=== PATIENT | female | born 1945 | race Caucasian/White ===

== ENCOUNTER → 2017-06-03 | Outpatient (CLI) | payer MEDICARE ==
[~2017-06-03] MED LIST: ABAT125S INJ; CALC600T4 PO; CEPH-368 PO; CHOL5000 PO; CLIN150C14 PO; FOLI0.8T2 PO; HYDR1TAB16 PO; MELO7.5T31 PO; METH2.5T PO; PRAV40TA2 PO; PRED5TAB PO; PREG300C PO; REGADENOSON 0.4 MG/5 ML SYRINGE ONE; SERT50TA PO; UMEC1DIS INH
== END | disposition home or self-care (01) ==
LOC: CFH 12:00
PROVIDERS: ATTEND Internal Medicine Cardiovascular Disease
DX: I08.0 Rheumatic disorders of both mitral and aortic valves (principal)
CPT/HCPCS: 78452; 93017; 93306; A9502; J2785

== ENCOUNTER → 2017-06-04 | Outpatient (CLI) | payer MEDICARE ==
[~2017-06-04] MED LIST changes: -REGADENOSON 0.4 MG/5 ML SYRINGE ONE
[2017-06-04 14:13] LABS: HEMATOCRIT 46.9 % (34.6-47.8); HEMOGLOBIN 16.1 g/dL (11.7-16.4); WHITE BLOOD COUNT 6.4 x10^3/uL (3.4-10)
[2017-06-04 14:26] LABS: ASPARTATE AMINO TRANSFERASE 43 U/L (15-37); BLOOD UREA NITROGEN 19 mg/dL (7-18)
[2017-06-04 14:47] LABS: HIV 1&2 ANTIBODY SCREEN Nonreactive (Nonreactive); HIV-1 p24 ANTIGEN Nonreactive (Nonreactive)
== END | disposition home or self-care (01) ==
LOC: MERGE 12:30 → STAR 12:38
PROVIDERS: ATTEND Orthopaedic Surgery Orthopaedic Surgery of the Spine
DX: Z01.818 Encounter for other preprocedural examination (principal); M51.16 Intervertebral disc disorders with radiculopathy, lumbar region; R79.1 Abnormal coagulation profile; M51.34 Other intervertebral disc degeneration, thoracic region; Z96.612 Presence of left artificial shoulder joint
CPT/HCPCS: 36415; 71020; 80053; 80074; 81003; 85025; 85610; 85651; 85730; 86703; 87899; G0435

== ENCOUNTER 2017-06-11 05:40 | Inpatient (IN) | payer MEDICARE ==
[2017-06-04 14:06] VITALS: BP 136/92
[~2017-06-11] VITALS: Ht 167.6 cm; Wt 83.0 kg
[2017-06-11] MEDS ORDERED: HEPARIN 1,000 UNITS/ML, 30ML ONE (05:58)
[2017-06-11] MEDS ORDERED: LIDOCAINE 1%, 2ML ONE (06:21)
[2017-06-11] MEDS ORDERED: BUPIVACAINE/PF 0.5% ONE (06:47)
[2017-06-11] MEDS ORDERED: FENTANYL PF 100 MCG/2ML ONE ×2 (06:48→07:11)
[2017-06-11] MEDS ORDERED: LIDOCAINE/PF 1%, 30ML ONE (06:48)
[2017-06-11] MEDS ORDERED: GENTAMICIN 80 MG/2 ML ONE (06:48)
[2017-06-11] MEDS ORDERED: VANCOMYCIN 1,000 MG ONE ×2 (06:49→09:11)
[2017-06-11] MEDS ORDERED: BACITRACIN 50,000 UNIT ONE (06:49)
[2017-06-11] MEDS ORDERED: morphine SULFATE/PF 1 MG/ML, 10ML ONE (06:49)
[2017-06-11] MEDS ORDERED: EPINEPHRINE 1 MG/ML, 1ML ONE (06:49)
[2017-06-11] MEDS ORDERED: THROMBIN 5,000 UNIT VIAL TP ONE (06:52)
[2017-06-11] MEDS ORDERED: LACTATED RINGERS 1,000 ML IV SCH (07:06)
[2017-06-11] MEDS ORDERED: MIDAZOLAM 1 MG/ML, 2ML ONE (07:11)
[2017-06-11] MEDS ORDERED: LIDOCAINE-MPF 2% ,5ML ONE (07:11)
[2017-06-11] MEDS ORDERED: PROPOFOL 10 MG/ML, 20ML ONE (07:11)
[2017-06-11] MEDS ORDERED: PHENYLEPHRINE 10 MG/ML ONE ×2 (07:13)
[2017-06-11] MEDS ORDERED: CEFAZOLIN 1,000 MG ONE ×2 (07:14)
[2017-06-11] MEDS ORDERED: REMIFENTANIL 2 MG ONE (07:26)
[2017-06-11] MEDS ORDERED: LIDOCAINE 1%, 2ML SQ PRN (07:30)
[2017-06-11] MEDS ORDERED: HYDROCORTISONE 100 MG INJ. ONE (07:43)
[2017-06-11] MEDS ORDERED: GLYCOPYRROLATE 0.4 MG/2 ML, 2ML ONE (08:20)
[2017-06-11] MEDS ORDERED: KETAMINE 10 MG/ML, 20ML ONE (08:59)
[2017-06-11] MEDS ORDERED: OXYcodone 5 MG/5 ML ORAL.SOL UDC PO PRN (09:00)
[2017-06-11] MEDS ORDERED: LABETALOL 5MG/ML, 20ML IV PRN ×2 (09:00→14:00)
[2017-06-11] MEDS ORDERED: ONDANSETRON 2MG/ML, 2ML IVPush PRN (09:00)
[2017-06-11] MEDS ORDERED: ACETAMINOPHEN 325 MG TABLET PO PRN (09:00)
[2017-06-11] MEDS ORDERED: PROMETHAZINE 25 MG/ML, 1ML IV PRN (09:00)
[2017-06-11] MEDS ORDERED: HYDROmorphone 1 MG/ML, 1ML IV PRN (09:00)
[2017-06-11] MEDS ORDERED: LORazepam 2 MG/ML, 1ML IVPush PRN (09:00)
[2017-06-11] MEDS ORDERED: hydrALAzine 20 MG/ML, 1ML IV PRN (09:00)
[2017-06-11] MEDS ORDERED: MEPERIDINE/PF 25MG/0.5ML IVPush PRN (09:00)
[2017-06-11] MEDS ORDERED: ALBUTEROL SULFATE 2.5 MG/3 ML NPPB PRN (09:00)
[2017-06-11] MEDS ORDERED: FENTANYL PF 100 MCG/2ML IV PRN (09:00)
[2017-06-11] MEDS ORDERED: ROCURONIUM 10MG/ML,5ML ONE (10:25)
[2017-06-11] MEDS ORDERED: PROPOFOL 10 MG/ML, 50ML ONE (10:25)
[2017-06-11] MEDS ORDERED: ONDANSETRON 2MG/ML, 2ML ONE (10:25)
[2017-06-11] MEDS ORDERED: SUCCINYLCHOLINE 20 MG/ML, 10ML ONE (10:25)
[2017-06-11] MEDS ORDERED: HYDROmorphone 1 MG/ML, 1ML ONE (10:41)
[2017-06-11] MEDS ORDERED: HYDROmorphone PCA 30 MG/30 ML ONE (12:10)
[2017-06-11] MEDS ORDERED: HYDROmorphone PCA 30 MG/30 ML IV PRN (12:30)
[2017-06-11 13:45] VITALS: BP 108/64
[2017-06-11] MEDS ORDERED: EPHEDRINE 50 MG/ML, 1ML IVPush PRN (14:00)
[2017-06-11] MEDS ORDERED: NALBUPHINE 10 MG/ML, 1ML IV PRN (14:00)
[2017-06-11] MEDS ORDERED: NALOXONE 0.4 MG/ML, 1ML IVPush PRN (14:00)
[2017-06-11] MEDS ORDERED: BISACODYL 10 MG SUPP PR PRN (14:00)
[2017-06-11] MEDS ORDERED: VANCOMYCIN PER PHARMACY MC PRN (14:00)
[2017-06-11] MEDS ORDERED: DIPHENHYDRAMINE 50 MG/ML, 1ML IVPush PRN ×3 (14:00)
[2017-06-11] MEDS ORDERED: DIAZEPAM 5 MG/ML, 2ML IV PRN (14:00)
[2017-06-11] MEDS ORDERED: DIPHENHYDRAMINE 50 MG/ML, 1ML IM PRN (14:00)
[2017-06-11] MEDS ORDERED: DIPHENHYDRAMINE 50 MG CAPSULE PO PRN (14:00)
[2017-06-11] MEDS ORDERED: MAGNESIUM HYDROXIDE 8%, 30ML UDC PO PRN (14:00)
[2017-06-11] MEDS ORDERED: PHARMACOKINETIC CONSULTATION MC ONE (14:00)
[2017-06-11] MEDS ORDERED: PHARMACOKINETIC MONITORING MC PRN (14:00)
[2017-06-11] MEDS ORDERED: DIAZEPAM 5 MG TABLET PO PRN (14:00)
[2017-06-11] MEDS ORDERED: PROMETHAZINE 25 MG/ML, 1ML IM PRN (14:00)
[2017-06-11] MEDS: ACETAMINOPHEN 500 MG TABLET PO SCH ×2 (14:41→21:18)
[2017-06-11] MEDS: LACTATED RINGERS 1,000 ML IV SCH ×2 (14:41→23:12)
[2017-06-11] MEDS: METOCLOPRAMIDE 5 MG/ML, 2ML IVPush SCH (14:59)
[2017-06-11 19:18] VITALS: BP 112/68
[2017-06-11] MEDS: PREGABALIN 150 MG CAPSULE PO SCH (21:18)
[2017-06-11] MEDS: PRAVASTATIN 40 MG TABLET PO SCH (23:12)
[2017-06-11 23:17] VITALS: BP 112/65
[2017-06-12] MEDS: METOCLOPRAMIDE 5 MG/ML, 2ML IVPush SCH (03:29)
[2017-06-12 03:36] VITALS: BP 104/56
[2017-06-12 05:55] LABS: BLOOD UREA NITROGEN 13 mg/dL (7-18)
[2017-06-12] MEDS: LACTATED RINGERS 1,000 ML IV SCH ×2 (06:52→16:45)
[2017-06-12] MEDS ORDERED: VANCOMYCIN 1,500 MG in SODIUM CHLORIDE 0.9% 250 ML IV SCH (09:00)
[2017-06-12] MEDS ORDERED: ERGOCALCIFEROL 50,000 UNIT CAPSULE PO SCH (09:00)
[2017-06-12 09:19] VITALS: BP 118/62
[2017-06-12] MEDS: PREGABALIN 150 MG CAPSULE PO SCH ×2 (09:48→20:49)
[2017-06-12] MEDS: SENNA/DOCUSATE TABLET PO SCH (09:48)
[2017-06-12] MEDS: CHOLECALCIFEROL 1,000 UNIT TABLET PO SCH (09:48)
[2017-06-12] MEDS: SERTRALINE 50MG TABLET PO SCH (09:48)
[2017-06-12] MEDS: CALCIUM CARBONATE 500 MG TAB.CHEW PO SCH ×2 (09:48→20:49)
[2017-06-12] MEDS: ACETAMINOPHEN 500 MG TABLET PO SCH ×2 (09:51→20:49)
[2017-06-12 13:23] VITALS: BP 101/59
[2017-06-12] MEDS: ANORO ELLIPTA HOMEINH SCH (14:00)
[2017-06-12 20:06] VITALS: BP 95/52
[2017-06-12] MEDS: PRAVASTATIN 40 MG TABLET PO SCH (20:49)
[2017-06-12] MEDS ORDERED: ZOLPIDEM 5MG TABLET PO PRN (21:00)
[2017-06-13] MEDS: LACTATED RINGERS 1,000 ML IV SCH ×2 (01:18→09:30)
[2017-06-13] MEDS ORDERED: HYDR-3307 PO (01:31)
[2017-06-13] MEDS ORDERED: ERGO500018 PO (01:36)
[2017-06-13 03:59] VITALS: BP 119/68
[2017-06-13 07:54] VITALS: BP 124/62
[2017-06-13] MEDS: CHOLECALCIFEROL 1,000 UNIT TABLET PO SCH (09:08)
[2017-06-13] MEDS: SENNA/DOCUSATE TABLET PO SCH (09:08)
[2017-06-13] MEDS: SERTRALINE 50MG TABLET PO SCH (09:08)
[2017-06-13] MEDS: PREGABALIN 150 MG CAPSULE PO SCH (09:08)
[2017-06-13] MEDS: CALCIUM CARBONATE 500 MG TAB.CHEW PO SCH (09:15)
[2017-06-13] MEDS: HYDROcodone/APAP 10/325 MG TABLET PO PRN ×2 (09:15→14:43)
[2017-06-13] MEDS: ACETAMINOPHEN 500 MG TABLET PO SCH (09:15)
[2017-06-13] MEDS ORDERED: VANCOMYCIN 1,500 MG in SODIUM CHLORIDE 0.9% 250 ML IV SCH (09:30)
[2017-06-13] MEDS ORDERED: MAGNESIUM HYDROXIDE 8%, 30ML UDC PO ONE (11:00)
[2017-06-13] MEDS: ANORO ELLIPTA HOMEINH SCH (13:30)
[2017-06-13 14:00] VITALS: BP 115/58
== END 2017-06-13 13:10 | disposition home or self-care (01) | DRG 460 ==
LOC: ORIP 05:40 → 4NOR 13:22
PROVIDERS: ADMIT Orthopaedic Surgery Orthopaedic Surgery of the Spine; ATTEND Orthopaedic Surgery Orthopaedic Surgery of the Spine
PROC: 0SP00AZ Removal of Interbody Fusion Device from Lumbar Vertebral Joint, Open Approach (ICD-10-PCS; 2017-06-11)
PROC: 0QB30ZZ Excision of Left Pelvic Bone, Open Approach (ICD-10-PCS; 2017-06-11)
PROC: 01NB0ZZ Release Lumbar Nerve, Open Approach (ICD-10-PCS; 2017-06-11)
PROC: 4A1134G Monitoring of Peripheral Nervous Electrical Activity, Intraoperative, Percutaneous Approach (ICD-10-PCS; 2017-06-11)
PROC: 0SG0071 Fusion of Lumbar Vertebral Joint with Autologous Tissue Substitute, Posterior Approach, Posterior Column, Open Approach (ICD-10-PCS; principal; 2017-06-11 07:30)
DX: M48.061 Spinal stenosis, lumbar region without neurogenic claudication (principal); E27.3 Drug-induced adrenocortical insufficiency; G62.9 Polyneuropathy, unspecified; F11.20 Opioid dependence, uncomplicated; M41.86 Other forms of scoliosis, lumbar region; Q78.2 Osteopetrosis; J44.9 Chronic obstructive pulmonary disease, unspecified; E78.5 Hyperlipidemia, unspecified; H91.90 Unspecified hearing loss, unspecified ear; G89.29 Other chronic pain; I10 Essential (primary) hypertension; M06.9 Rheumatoid arthritis, unspecified; M19.90 Unspecified osteoarthritis, unspecified site; M43.16 Spondylolisthesis, lumbar region; Z96.641 Presence of right artificial hip joint; Z96.651 Presence of right artificial knee joint; F12.90 Cannabis use, unspecified, uncomplicated; M05.9 Rheumatoid arthritis with rheumatoid factor, unspecified; R56.9 Unspecified convulsions; M54.16 Radiculopathy, lumbar region; M81.0 Age-related osteoporosis without current pathological fracture; T38.0X5A Adverse effect of glucocorticoids and synthetic analogues, initial encounter; Y92.89 Other specified places as the place of occurrence of the external cause; Z79.52 Long term (current) use of systemic steroids; Z78.9 Other specified health status; Z80.8 Family history of malignant neoplasm of other organs or systems; Z82.5 Family history of asthma and other chronic lower respiratory diseases; Z86.14 Personal history of Methicillin resistant Staphylococcus aureus infection; Z87.891 Personal history of nicotine dependence; Z88.2 Allergy status to sulfonamides
CPT/HCPCS: 36415; 72100; 82565; 84520; 86850; 86900; 86923; 95938; 95941; C1713; J0171; J0690; J1170; J1644; J2250; J2274; J2405; J2704; J3010; J3370; J3490; C1751; C1762; J0330; J1580; J1720; J2370; J2765; J7050; J7120; J7512

== ENCOUNTER 2017-10-24 12:30 | Inpatient (IN) | payer MEDICARE ==
[~2017-10-24] VITALS: Ht 152.4 cm; Wt 72.9 kg
[~2017-10-24 12:30] MED LIST changes: +ERGO500018 PO; +HYDR-3307 PO
[2017-10-24] MEDS ORDERED: SODIUM CHLORIDE 0.9% 1,000 ML IV ONE (13:12)
[2017-10-24] MEDS ORDERED: SODIUM CHLORIDE FLUSH 10ML SYR IVF ONE (13:30)
[2017-10-24 13:35] LABS: BASOPHILS % (AUTO) 0 % (0-1); EOSINOPHILS # (AUTO) 0.04 x10^3/uL (0-0.4); EOSINOPHILS % (AUTO) 1 % (1-7); LYMPHOCYTES # (AUTO) 0.94 x10^3/uL (1-3.4); LYMPHOCYTES % (AUTO) 13 % (22-44); MD NO; MEAN CORPUSCULAR HEMOGLOBIN 32.5 pg (27.0-34.8); MEAN CORPUSCULAR HGB CONC 33.7 g/dL (32.4-35.8); MEAN CORPUSCULAR VOLUME 96.4 fL (80-100); MEAN PLATELET VOLUME 8.3 fL (7.4-10.4); MONOCYTES # (AUTO) 0.52 x10^3/uL (0.2-0.8); MONOCYTES % (AUTO) 7 % (2-9); NEUTROPHILS # (AUTO) 5.68 x10^3/uL (1.8-6.8); NEUTROPHILS % (AUTO) 79 % (42-75); PLATELET COUNT 191 x10^3/uL (130-400); RED BLOOD COUNT 4.72 x10^6/uL (3.82-5.3); RED CELL DISTRIBUTION WIDTH 14.9 % (9.6-15.2)
[2017-10-24 13:44] LABS: INTERNATIONAL NORMALIZED RATIO 1.04 (0.93-1.1); PROTHROMBIN TIME 10.7 Seconds (9.6-11.5)
[2017-10-24 13:47] LABS: ALANINE AMINOTRANSFERASE 61 U/L (12-78); ALBUMIN 3.9 g/dL (3.4-5.0); ANION GAP 10 mmol/L (5-15); CALCIUM 8.8 mg/dL (8.5-10.1); CHLORIDE 105 mmol/L (98-107)
[2017-10-24 13:51] LABS: ALKALINE PHOSPHATASE 94 U/L (45-117); BILIRUBIN,TOTAL 0.7 mg/dL (0.2-1.0); TOTAL PROTEIN 7.2 g/dL (6.4-8.2); TROPONIN I < 0.015 ng/mL (0.000-0.045)
[2017-10-24 14:59] LABS: MICROSCOPIC AUTO
[2017-10-24 15:00] LABS: CULTURE INDICATED? YES
[2017-10-24] MEDS ORDERED: ASPIRIN 81 MG TABLET CHEW PO ONE (15:00)
[2017-10-24] MEDS ORDERED: ASPIRIN 81 MG TABLET CHEW ONE (15:03)
[2017-10-24] MEDS ORDERED: METH2.5T PO (15:14)
[2017-10-24] MEDS ORDERED: MELO7.5T31 PO (15:16)
[2017-10-24] MEDS ORDERED: HYDROcodone/APAP 10/325 MG TABLET ONE (15:38)
[2017-10-24] MEDS ORDERED: HYDROcodone/APAP 10/325 MG TABLET PO ONE (16:00)
[2017-10-24 16:43] LABS: HCT (SEDRATE) 45.5 % (34.6-47.8)
[2017-10-24] MEDS ORDERED: ONDANSETRON 2MG/ML, 2ML IVPush PRN (17:00)
[2017-10-24] MEDS ORDERED: ONDANSETRON ODT 4 MG PO PRN (17:00)
[2017-10-24] MEDS ORDERED: ENALAPRILAT 1.25 MG/ML, 2ML IV PRN (17:00)
[2017-10-24] MEDS ORDERED: ACETAMINOPHEN 325 MG TABLET PO PRN (17:00)
[2017-10-24] MEDS: IPRATROPIUM 0.5 MG/2.5 ML INHA NPPB SCH ×2 (17:00→23:00)
[2017-10-24 17:02] LABS: THYROID STIMULATING HORMONE 0.427 mIU/L (0.358-3.740)
[2017-10-24 17:15] VITALS: BP 186/90
[2017-10-24 17:17] LABS: C-REACTIVE PROTEIN, QUANT 1.3 mg/dL (0.02-0.49)
[2017-10-24] MEDS: METHOTREXATE MC SCH (17:30)
[2017-10-24] MEDS: UMECLIDINIUM MC SCH (17:30)
[2017-10-24] MEDS: VILANTEROL MC SCH (17:30)
[2017-10-24] MEDS ORDERED: CEFTRIAXONE PMX 1GM/50ML 50 ML IV SCH (18:00)
[2017-10-24] MEDS ORDERED: ENOXAPARIN 40 MG/0.4 ML SQ SCH (18:00)
[2017-10-24] MEDS: SODIUM CHLORIDE 0.9% 1,000 ML IV SCH (18:12)
[2017-10-24] MEDS ORDERED: PRAVASTATIN 40 MG TABLET PO SCH (21:00)
[2017-10-24] MEDS ORDERED: DOCUSATE 100 MG CAPSULE PO PRN (21:00)
[2017-10-24 21:05] VITALS: BP_SYST 163; BP_SYST 169; BP_SYST 185; BP_DIAS 89; BP_DIAS 94; BP_DIAS 98
[2017-10-24] MEDS: HYDROcodone/APAP 10/325 MG TABLET PO PRN (21:09)
[2017-10-24] MEDS: PREGABALIN 150 MG CAPSULE PO SCH (21:09)
[2017-10-25] MEDS: VILANTEROL MC SCH ×2 (01:05→09:30)
[2017-10-25] MEDS: UMECLIDINIUM MC SCH ×2 (01:05→09:30)
[2017-10-25] MEDS: METHOTREXATE MC SCH ×2 (01:05→09:30)
[2017-10-25 04:38] VITALS: BP 150/92
[2017-10-25] MEDS: SODIUM CHLORIDE 0.9% 1,000 ML IV SCH (04:45)
[2017-10-25] MEDS: IPRATROPIUM 0.5 MG/2.5 ML INHA NPPB SCH ×2 (05:00→11:00)
[2017-10-25 05:52] LABS: BASOPHILS # (AUTO) 0.03 x10^3/uL (0-0.1); BASOPHILS % (AUTO) 1 % (0-1); EOSINOPHILS # (AUTO) 0.12 x10^3/uL (0-0.4); EOSINOPHILS % (AUTO) 2 % (1-7); LYMPHOCYTES # (AUTO) 1.46 x10^3/uL (1-3.4); LYMPHOCYTES % (AUTO) 29 % (22-44); MD NO; MEAN CORPUSCULAR HEMOGLOBIN 32.7 pg (27.0-34.8); MEAN CORPUSCULAR HGB CONC 33.9 g/dL (32.4-35.8); MEAN CORPUSCULAR VOLUME 96.6 fL (80-100); MEAN PLATELET VOLUME 8.3 fL (7.4-10.4); MONOCYTES # (AUTO) 0.54 x10^3/uL (0.2-0.8); MONOCYTES % (AUTO) 11 % (2-9); NEUTROPHILS # (AUTO) 2.82 x10^3/uL (1.8-6.8); NEUTROPHILS % (AUTO) 57 % (42-75); PLATELET COUNT 163 x10^3/uL (130-400); RED BLOOD COUNT 4.23 x10^6/uL (3.82-5.3); RED CELL DISTRIBUTION WIDTH 14.9 % (9.6-15.2)
[2017-10-25 05:54] LABS: CHLORIDE 111 mmol/L (98-107)
[2017-10-25 06:00] LABS: ALANINE AMINOTRANSFERASE 50 U/L (12-78); ALBUMIN 3.3 g/dL (3.4-5.0); ALKALINE PHOSPHATASE 83 U/L (45-117); ANION GAP 6 mmol/L (5-15); BILIRUBIN,TOTAL 0.6 mg/dL (0.2-1.0); CALCIUM 7.7 mg/dL (8.5-10.1); CHOL/HDL RATIO 3.5; CHOLESTEROL, TOTAL 196 mg/dL (140-239); CREATININE 0.71 mg/dL (0.55-1.02); HDL CHOL % 29 % (28-40); HDL CHOLESTEROL (DIRECT) 56 mg/dL (40-60); LDL CHOLESTEROL,CALCULATED 91 mg/dL (54-169); LDL/HDL RATIO 1.6 (0.5-3.0); TRIGLYCERIDES 243 mg/dL (50-200); VLDL CHOLESTEROL 49 mg/dL (0-25)
[2017-10-25] MEDS ORDERED: ASPIRIN 325 MG TABLET PO SCH (06:00)
[2017-10-25 08:45] VITALS: BP 178/105
[2017-10-25] MEDS: PREGABALIN 150 MG CAPSULE PO SCH (08:51)
[2017-10-25] MEDS: HYDROcodone/APAP 10/325 MG TABLET PO PRN (08:57)
[2017-10-25] MEDS ORDERED: CHOLECALCIFEROL 1,000 UNIT TABLET PO SCH (09:00)
[2017-10-25] MEDS ORDERED: CALCIUM CARBONATE 500 MG TAB.CHEW PO SCH (09:00)
[2017-10-25] MEDS ORDERED: SERTRALINE 50MG TABLET PO SCH (09:00)
[2017-10-25 12:55] VITALS: BP 153/72
[2017-10-25] MEDS ORDERED: METHOTREXATE 2.5 MG TABLET PO SCH (17:00)
== END 2017-10-25 16:00 | disposition left against medical advice (07) | DRG 69 ==
LOC: ED 13:54 → EDIP 14:56 → 4WST 17:00
PROVIDERS: ADMIT Hospitalist; ATTEND Hospitalist
DX: G45.9 Transient cerebral ischemic attack, unspecified (principal); F11.20 Opioid dependence, uncomplicated; J44.9 Chronic obstructive pulmonary disease, unspecified; G40.909 Epilepsy, unspecified, not intractable, without status epilepticus; J98.11 Atelectasis; N39.0 Urinary tract infection, site not specified; R51 Headache; M06.9 Rheumatoid arthritis, unspecified; E78.5 Hyperlipidemia, unspecified; I10 Essential (primary) hypertension; Z53.21 Procedure and treatment not carried out due to patient leaving prior to being seen by health care provider; M19.90 Unspecified osteoarthritis, unspecified site; M81.0 Age-related osteoporosis without current pathological fracture; Z96.612 Presence of left artificial shoulder joint; H91.90 Unspecified hearing loss, unspecified ear; T38.0X5A Adverse effect of glucocorticoids and synthetic analogues, initial encounter; Y92.89 Other specified places as the place of occurrence of the external cause; Z79.52 Long term (current) use of systemic steroids; Z86.14 Personal history of Methicillin resistant Staphylococcus aureus infection; Z87.891 Personal history of nicotine dependence; Z88.2 Allergy status to sulfonamides; Z79.899 Other long term (current) drug therapy
CPT/HCPCS: 36415; 70450; 70551; 71045; 80053; 80061; 81001; 82140; 83735; 83880; 84145; 84443; 84484; 85025; 85610; 85651; 85730; 86140; 87086; 93005; 93306; 93880; 99285; J0696; J1650; 92523-GN; J7030; J7512

== ENCOUNTER 2018-08-09 13:09 | Inpatient (IN) | payer MEDICARE ==
[~2018-08-09] VITALS: Ht 165.1 cm; Wt 76.5 kg
[2018-08-09 14:12] LABS: BASOPHILS # (AUTO) 0.07 x10^3/uL (0-0.1); BASOPHILS % (AUTO) 1 % (0-1); EOSINOPHILS # (AUTO) 0.24 x10^3/uL (0-0.4); EOSINOPHILS % (AUTO) 4 % (1-7); LYMPHOCYTES # (AUTO) 1.29 x10^3/uL (1-3.4); LYMPHOCYTES % (AUTO) 20 % (22-44); MD NO; MEAN CORPUSCULAR HEMOGLOBIN 33.1 pg (27.0-34.8); MEAN CORPUSCULAR HGB CONC 33.7 g/dL (32.4-35.8); MEAN CORPUSCULAR VOLUME 98.4 fL (80-100); MEAN PLATELET VOLUME 8.3 fL (7.4-10.4); MONOCYTES # (AUTO) 0.66 x10^3/uL (0.2-0.8); MONOCYTES % (AUTO) 10 % (2-9); NEUTROPHILS # (AUTO) 4.07 x10^3/uL (1.8-6.8); NEUTROPHILS % (AUTO) 64 % (42-75); PLATELET COUNT 182 x10^3/uL (130-400); RED BLOOD COUNT 4.49 x10^6/uL (3.82-5.3); RED CELL DISTRIBUTION WIDTH 14.4 % (9.6-15.2)
[2018-08-09 14:24] LABS: ALANINE AMINOTRANSFERASE 45 U/L (12-78); ALBUMIN 4.3 g/dL (3.4-5.0); ANION GAP 8 mmol/L (5-15); CALCIUM 8.5 mg/dL (8.5-10.1); CHLORIDE 106 mmol/L (98-107); SALICYLATE LEVEL 1.7 mg/dL (2.8-20.0)
[2018-08-09 14:26] LABS: MICROSCOPIC NOT IND
[2018-08-09 14:29] LABS: CULTURE INDICATED? NO
[2018-08-09 14:29] LABS: ALKALINE PHOSPHATASE 91 U/L (45-117); BILIRUBIN,TOTAL 1.1 mg/dL (0.2-1.0); CREATININE 0.77 mg/dL (0.55-1.02); TOTAL PROTEIN 7.1 g/dL (6.4-8.2); TROPONIN I < 0.015 ng/mL (0.000-0.045)
[2018-08-09] MEDS ORDERED: TRAZODONE 50MG TABLET PO PRN (16:00)
[2018-08-09] MEDS ORDERED: ACETAMINOPHEN 325 MG TABLET PO PRN (16:00)
[2018-08-09] MEDS ORDERED: ENALAPRILAT 1.25 MG/ML, 2ML IVPush PRN (16:00)
[2018-08-09] MEDS ORDERED: ONDANSETRON 2MG/ML, 2ML IVPush PRN (16:00)
[2018-08-09] MEDS ORDERED: ONDANSETRON ODT 4 MG PO PRN (16:00)
[2018-08-09 16:02] VITALS: BP 108/67
[2018-08-09] MEDS ORDERED: ALBUTEROL SULFATE 2.5 MG/3 ML NPPB PRN (16:30)
[2018-08-09 17:06] LABS: HCT (SEDRATE) 41.4 % (34.6-47.8)
[2018-08-09] MEDS: D5%-0.45NACL+KCL 20MEQ 1,000 ML IV SCH (17:27)
[2018-08-09 20:40] VITALS: BP 125/78
[2018-08-09] MEDS ORDERED: PRAVASTATIN 40 MG TABLET PO SCH (21:00)
[2018-08-09] MEDS: BUTALB/APAP/CAFFEINE 50MG/325MG/40MG PO PRN (21:45)
[2018-08-09] MEDS: PREGABALIN 150 MG CAPSULE PO SCH (21:46)
[2018-08-10 01:33] VITALS: BP 111/58
[2018-08-10] MEDS: D5%-0.45NACL+KCL 20MEQ 1,000 ML IV SCH (06:01)
[2018-08-10 06:17] LABS: BASOPHILS # (AUTO) 0.05 x10^3/uL (0-0.1); BASOPHILS % (AUTO) 1 % (0-1); EOSINOPHILS % (AUTO) 4 % (1-7); LYMPHOCYTES # (AUTO) 1.11 x10^3/uL (1-3.4); LYMPHOCYTES % (AUTO) 24 % (22-44); MD NO; MEAN CORPUSCULAR HEMOGLOBIN 33.9 pg (27.0-34.8); MEAN CORPUSCULAR HGB CONC 34.4 g/dL (32.4-35.8); MEAN CORPUSCULAR VOLUME 98.5 fL (80-100); MEAN PLATELET VOLUME 8.3 fL (7.4-10.4); MONOCYTES # (AUTO) 0.51 x10^3/uL (0.2-0.8); MONOCYTES % (AUTO) 11 % (2-9); NEUTROPHILS # (AUTO) 2.83 x10^3/uL (1.8-6.8); NEUTROPHILS % (AUTO) 60 % (42-75); PLATELET COUNT 173 x10^3/uL (130-400); RED BLOOD COUNT 4.09 x10^6/uL (3.82-5.3); RED CELL DISTRIBUTION WIDTH 13.9 % (9.6-15.2)
[2018-08-10 06:30] LABS: CHLORIDE 103 mmol/L (98-107)
[2018-08-10 06:37] LABS: ALANINE AMINOTRANSFERASE 44 U/L (12-78); ALBUMIN 3.4 g/dL (3.4-5.0); ALKALINE PHOSPHATASE 78 U/L (45-117); ANION GAP 6 mmol/L (5-15); BILIRUBIN,TOTAL 0.8 mg/dL (0.2-1.0); CALCIUM 8.1 mg/dL (8.5-10.1); CHOL/HDL RATIO 3.1; CHOLESTEROL, TOTAL 178 mg/dL (140-239); CREATININE 0.67 mg/dL (0.55-1.02); HDL CHOL % 33 % (28-40); HDL CHOLESTEROL (DIRECT) 58 mg/dL (40-60); LDL CHOLESTEROL,CALCULATED 80 mg/dL (54-169); LDL/HDL RATIO 1.4 (0.5-3.0); TOTAL PROTEIN 6.1 g/dL (6.4-8.2); TRIGLYCERIDES 202 mg/dL (50-200); VLDL CHOLESTEROL 40 mg/dL (0-25)
[2018-08-10 08:00] VITALS: BP 147/81
[2018-08-10] MEDS: PREGABALIN 150 MG CAPSULE PO SCH (08:30)
[2018-08-10] MEDS ORDERED: SERTRALINE 50MG TABLET PO SCH (09:00)
[2018-08-10] MEDS ORDERED: ASPIRIN 81 MG TABLET CHEW PO/NG SCH (09:00)
[2018-08-10] MEDS: BUTALB/APAP/CAFFEINE 50MG/325MG/40MG PO PRN (12:13)
[2018-08-10 14:52] VITALS: BP 148/80
[2018-08-10] MEDS ORDERED: BUTA-177 PO (15:18)
[2018-08-10] MEDS ORDERED: ASPI-650 PO (15:18)
== END 2018-08-10 17:30 | disposition home or self-care (01) | DRG 70 ==
LOC: ED 14:26 → 4EST 14:53
PROVIDERS: ADMIT Family Medicine; ATTEND Family Medicine
DX: G93.40 Encephalopathy, unspecified (principal); J96.01 Acute respiratory failure with hypoxia; R47.01 Aphasia; G40.909 Epilepsy, unspecified, not intractable, without status epilepticus; R47.1 Dysarthria and anarthria; G43.909 Migraine, unspecified, not intractable, without status migrainosus; G89.29 Other chronic pain; I10 Essential (primary) hypertension; M06.9 Rheumatoid arthritis, unspecified; E78.5 Hyperlipidemia, unspecified; F03.90 Unspecified dementia, unspecified severity, without behavioral disturbance, psychotic disturbance, mood disturbance, and anxiety; H91.10 Presbycusis, unspecified ear; J44.9 Chronic obstructive pulmonary disease, unspecified; F32.9 Major depressive disorder, single episode, unspecified; Z86.73 Personal history of transient ischemic attack (TIA), and cerebral infarction without residual deficits; Z79.899 Other long term (current) drug therapy
CPT/HCPCS: 36415; 36600; 70450; 70544; 70551; 71045; 80053; 80061; 80307; 80329; 81003; 82140; 82607; 82803; 82962; 84425; 84443; 84484; 85025; 85651; 86592; 93005; 93880; 99285; G0378; G0480; J3480

== ENCOUNTER → 2018-10-10 | Outpatient (CLI) | payer MEDICARE ==
[~2018-10-10] MED LIST changes: +ASPI-650 PO; +BUTA-177 PO
== END | disposition home or self-care (01) ==
LOC: CFH 12:57
PROVIDERS: ATTEND Internal Medicine Critical Care Medicine
DX: J98.11 Atelectasis (principal); J98.4 Other disorders of lung
CPT/HCPCS: 71250

== ENCOUNTER 2019-01-09 06:14 | Emergency (ER) | payer MEDICARE ==
[~2019-01-09] VITALS: Ht 165.1 cm; Wt 71.0 kg
--- NOTE | 2019-01-09 06:20 | NUR ---
Having trouble obtaining proper bp. Will attempt bp in room.
--- NOTE | 2019-01-09 06:26 | NUR ---
PT PRESENTED TO ED WITH N/V AND DIARRHEA FOR A FEW DAYS. PT IS CURRENTLY TAKING ANTIBIOTICS FOR A CURRENT CAT BITE. PT HAD A TOOTH EXTRACTION YESTERDAY. PT PLACED IN ROOM AND PLACED ON BP, CARDIAC AND CONT. PULSE OXIMETER. ASSESSMENT COMPLETED. MD AT BEDSIDE. 2 SIDE RAILS UP. PT FEELING WEAK AND STATES SHE HAS A HEADACHE.
[2019-01-09] MEDS ORDERED: ONDANSETRON 2MG/ML, 2ML ONE (06:48)
[2019-01-09] MEDS ORDERED: SODIUM CHLORIDE FLUSH 10ML SYR IVF ONE (07:00)
[2019-01-09] MEDS ORDERED: SODIUM CHLORIDE 0.9% 1,000ML IVBOLUS ONE (07:00)
[2019-01-09] MEDS ORDERED: ONDANSETRON 2MG/ML, 2ML IVPush ONE (07:00)
[2019-01-09] MEDS ORDERED: HYDR-3307 PO (07:07)
[2019-01-09] MEDS ORDERED: MELO7.5T31 PO (07:08)
[2019-01-09] MEDS ORDERED: FOLI0.8T2 PO (07:10)
[2019-01-09] MEDS ORDERED: ALBU8.5H8 INH (07:11)
[2019-01-09 07:22] LABS: ALANINE AMINOTRANSFERASE 373 U/L (12-78); ALBUMIN 3.5 g/dL (3.4-5.0); ANION GAP 9 mmol/L (5-15); CALCIUM 8.8 mg/dL (8.5-10.1); CHLORIDE 102 mmol/L (98-107); CREATININE 1.28 mg/dL (0.55-1.02)
[2019-01-09 07:26] LABS: ALKALINE PHOSPHATASE 193 U/L (45-117); BILIRUBIN,TOTAL 1.8 mg/dL (0.2-1.0); TOTAL PROTEIN 6.9 g/dL (6.4-8.2); TROPONIN I < 0.015 ng/mL (0.000-0.045)
[2019-01-09 08:03] LABS: BASOPHILS % (AUTO) 0 % (0-1); EOSINOPHILS # (AUTO) 0.16 x10^3/uL (0-0.4); EOSINOPHILS % (AUTO) 2 % (1-7); LYMPHOCYTES # (AUTO) 0.33 x10^3/uL (1-3.4); LYMPHOCYTES % (AUTO) 4 % (22-44); MD NO; MEAN CORPUSCULAR HEMOGLOBIN 34.1 pg (27.0-34.8); MEAN CORPUSCULAR HGB CONC 34.6 g/dL (32.4-35.8); MEAN CORPUSCULAR VOLUME 98.6 fL (80-100); MEAN PLATELET VOLUME 8.3 fL (7.4-10.4); MONOCYTES # (AUTO) 0.15 x10^3/uL (0.2-0.8); MONOCYTES % (AUTO) 2 % (2-9); NEUTROPHILS # (AUTO) 6.88 x10^3/uL (1.8-6.8); NEUTROPHILS % (AUTO) 92 % (42-75); PLATELET COUNT 123 x10^3/uL (130-400); RED BLOOD COUNT 4.44 x10^6/uL (3.82-5.3); RED CELL DISTRIBUTION WIDTH 14.3 % (9.6-15.2)
--- NOTE | 2019-01-09 08:37 | NUR ---
US AT BEDSIDE
--- NOTE | 2019-01-09 09:03 | NUR ---
REPORT GIVEN TO MEGA MARIA
[2019-01-09 10:05] VITALS: BP 110/63
--- NOTE | 2019-01-09 10:06 | NUR ---
PT RESTING IN ROOM. VSS. UA COLLECTED AND SENT. PT PROVIDED H2O FOR PO CHALLENGE. PT PASSED PO CHALLENGE WITH NO N/V. PT ALSO REQUESTING MEDS FOR BANUELOS. EDMD TO BE UPDATED.
[2019-01-09] MEDS ORDERED: ACETAMINOPHEN 500 MG TABLET ONE (10:11)
--- NOTE | 2019-01-09 10:15 | NUR ---
PT MEDICATED FOR BANUELOS PER MAR. VSS. NO N/V. AWAITING UA RESULTS.
[2019-01-09 10:29] LABS: CULTURE INDICATED? YES; MICROSCOPIC INDICATED
[2019-01-09] MEDS ORDERED: ACETAMINOPHEN 500 MG TABLET PO ONE (10:30)
== END 2019-01-09 11:18 | disposition home or self-care (01) ==
LOC: ED 07:17
DX: N30.90 Cystitis, unspecified without hematuria (principal); R94.5 Abnormal results of liver function studies; R11.2 Nausea with vomiting, unspecified; R19.7 Diarrhea, unspecified; F41.1 Generalized anxiety disorder; G40.909 Epilepsy, unspecified, not intractable, without status epilepticus; J44.9 Chronic obstructive pulmonary disease, unspecified; E78.5 Hyperlipidemia, unspecified; M06.9 Rheumatoid arthritis, unspecified; I10 Essential (primary) hypertension; Z86.73 Personal history of transient ischemic attack (TIA), and cerebral infarction without residual deficits
CPT/HCPCS: 36415; 76700; 80053; 80074; 81001; 83605; 84484; 85025; 87086; 93005; 96374; 99284; J2405; J7030

== ENCOUNTER 2019-02-05 14:27 | Outpatient (CLI) | payer MEDICARE ==
[~2019-02-05 14:27] MED LIST changes: +ALBU8.5H8 INH
== END 2019-02-05 23:59 | disposition home or self-care (01) ==
LOC: CVU 14:27
PROVIDERS: ATTEND Internal Medicine Cardiovascular Disease
DX: I08.8 Other rheumatic multiple valve diseases (principal); I10 Essential (primary) hypertension
CPT/HCPCS: 93306

== ENCOUNTER 2019-03-12 02:25 | Inpatient (IN) | payer MEDICARE ==
[~2019-03-12] VITALS: Ht 165.1 cm; Wt 72.8 kg
[2019-03-12] MEDS ORDERED: FLUT50BL PO (02:47)
--- NOTE | 2019-03-12 02:47 | NUR ---
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 PT WOKE UP HUSBANDS WITH CONTRACTURES AND SEIZURE LIKE ACTIVITY, PT HAD HER EYES OPEN AND WAS UNRESPONSIVE TO . PT DID NOT FALL OR HAVE ANY LOSS OF LOC, PT WAS POSTICTAL AND WAS INCONTINET OF URINE ON ARRIVAL. PT HAS NO VISIBLE S/SX OF TRUAMA. DOES COMPLAIN OF HIP PAIN. PT CONNECTED TO ALL MONITORS AND CALL LIGHT IN REACH. SEIZURE PRECAUTIONS IN PLACE. PT EKG COMPLETED. LARGE BORE PIV IN PLACE. AWAITING FURTHER ORDERS. ALMA. Qian CARREON TO BEDSIDE FOR EVAL. AT BEDSIDE. MED REC COMPELTE.
[2019-03-12] MEDS ORDERED: SODIUM CHLORIDE FLUSH 10ML SYR IVF ONE (03:00)
[2019-03-12] MEDS ORDERED: ONDANSETRON 2MG/ML, 2ML ONE (03:05)
--- NOTE | 2019-03-12 03:08 | NUR ---
Pt ua collected and clark care provided. Pt medicated per emar.
[2019-03-12 03:21] LABS: BASOPHILS # (AUTO) 0.09 x10^3/uL (0-0.1); BASOPHILS % (AUTO) 1 % (0-1); EOSINOPHILS # (AUTO) 0.17 x10^3/uL (0-0.4); EOSINOPHILS % (AUTO) 3 % (1-7); LYMPHOCYTES # (AUTO) 1.32 x10^3/uL (1-3.4); LYMPHOCYTES % (AUTO) 20 % (22-44); MD NO; MEAN CORPUSCULAR HEMOGLOBIN 32.6 pg (27.0-34.8); MEAN CORPUSCULAR HGB CONC 32.5 g/dL (32.4-35.8); MEAN CORPUSCULAR VOLUME 100.3 fL (80-100); MEAN PLATELET VOLUME 8.1 fL (7.4-10.4); MONOCYTES # (AUTO) 0.64 x10^3/uL (0.2-0.8); MONOCYTES % (AUTO) 10 % (2-9); NEUTROPHILS # (AUTO) 4.38 x10^3/uL (1.8-6.8); NEUTROPHILS % (AUTO) 66 % (42-75); PLATELET COUNT 213 x10^3/uL (130-400); RED BLOOD COUNT 4.43 x10^6/uL (3.82-5.3); RED CELL DISTRIBUTION WIDTH 15.2 % (9.6-15.2)
[2019-03-12 03:23] LABS: MICROSCOPIC AUTO
[2019-03-12 03:29] LABS: ALANINE AMINOTRANSFERASE 39 U/L (12-78); ANION GAP 8 mmol/L (5-15); CALCIUM 10.4 mg/dL (8.5-10.1); CHLORIDE 104 mmol/L (98-107); CREATININE 0.79 mg/dL (0.55-1.02)
[2019-03-12] MEDS ORDERED: ONDANSETRON 2MG/ML, 2ML IVPush ONE (03:30)
[2019-03-12 03:34] LABS: ALKALINE PHOSPHATASE 102 U/L (45-117); BILIRUBIN,TOTAL 0.5 mg/dL (0.2-1.0); TOTAL PROTEIN 6.9 g/dL (6.4-8.2)
[2019-03-12 03:36] LABS: TROPONIN I 0.166 ng/mL (0.000-0.045)
--- NOTE | 2019-03-12 03:37 | NUR ---
CRITICAL TROP REPORTED TO AND PA
[2019-03-12 03:48] LABS: CULTURE INDICATED? YES
--- NOTE | 2019-03-12 03:49 | NUR ---
Code Neuro called at 03:46. Neurology paged (Dr. Valdivia) at 03:48.
[2019-03-12 04:06] LABS: INTERNATIONAL NORMALIZED RATIO 0.99 (0.93-1.1); PROTHROMBIN TIME 10.4 Seconds (9.6-11.5)
--- NOTE | 2019-03-12 04:12 | NUR ---
THIS RN WITH MD ABDALLA AT BEDSIDE NOTED CHANGE IN LOC, PT BEYOND BASELINE. PT HAD A NIH SCORE OF 5 FOR 1 ON LOC, 1 ON LOC QUESTIONS, 2 BEST LANGUEGE, 1 DYSARTHRIA. PT HAD BG WDL. PT HAD PERRLA PRESENT. PT TAKED TO CT AFTER CODE NEURO. PT REMAINED ON MONITORS. PT UPON RETURN FROM CT STARTED TO RETURN TO BASELINE. ABLE TO BE A/OX4
[2019-03-12] MEDS ORDERED: OMNIPAQUE 350 MG/ML, 100ML BOTTLE ONE (04:22)
[2019-03-12] MEDS ORDERED: HEPARIN 5,000 UNITS/ML, 1ML IV ONE (05:00)
[2019-03-12] MEDS ORDERED: HEPARIN 5,000 UNITS/ML, 1ML ONE (05:05)
[2019-03-12] MEDS ORDERED: HEPARIN 25,000 UNITS/500ML PMX 500 ML ONE (05:05)
[2019-03-12] MEDS: HEPARIN 25,000 UNITS/500ML PMX 500 ML IV PRN (05:28)
--- NOTE | 2019-03-12 05:33 | NUR ---
REPORT TO SERENA MARIA
[2019-03-12 05:54] VITALS: BP 114/80
[2019-03-12] MEDS ORDERED: PROMETHAZINE 25 MG/ML, 1ML IM PRN (07:30)
[2019-03-12] MEDS ORDERED: BISACODYL 10 MG SUPP PR PRN (07:30)
[2019-03-12] MEDS ORDERED: morphine SULFATE 10 MG/ML, 1ML IVPush PRN (07:30)
[2019-03-12] MEDS ORDERED: hydrALAzine 20 MG/ML, 1ML IVPush PRN (07:30)
[2019-03-12] MEDS ORDERED: POLYETHYLENE GLYCOL 17 GM PACKET PO PRN (07:30)
[2019-03-12] MEDS ORDERED: ONDANSETRON 2MG/ML, 2ML IVPush PRN (07:30)
[2019-03-12] MEDS ORDERED: DOCUSATE 100 MG CAPSULE PO PRN (07:30)
[2019-03-12] MEDS ORDERED: LORazepam 2 MG/ML, 1ML IVPush PRN (07:30)
[2019-03-12] MEDS ORDERED: ONDANSETRON ODT 4 MG PO PRN (07:30)
[2019-03-12] MEDS ORDERED: NITROGLYCERIN 0.4 MG BOTTLE (25 TABS) SL PRN (07:30)
[2019-03-12 07:48] VITALS: BP 118/78
[2019-03-12 08:32] LABS: FREE T4 (FREE THYROXINE) 0.96 ng/dL (0.76-1.46); TROPONIN I 0.694 ng/mL (0.000-0.045)
[2019-03-12 08:33] LABS: HEMOGLOBIN A1C 5.5 % (4.2-6.3)
[2019-03-12] MEDS ORDERED: SERTRALINE 100MG TABLET ONE (08:34)
[2019-03-12] MEDS: ASPIRIN 325 MG TABLET EC PO SCH (08:42)
[2019-03-12] MEDS: FOLIC ACID 1 MG TABLET PO SCH ×2 (08:42→20:32)
[2019-03-12] MEDS: CALCIUM CARBONATE 500 MG TAB.CHEW PO SCH (08:42)
[2019-03-12] MEDS: PREGABALIN 150 MG CAPSULE PO SCH ×2 (08:43→20:32)
[2019-03-12] MEDS: MELOXICAM 15 MG TABLET PO SCH (08:43)
[2019-03-12] MEDS: SERTRALINE 50MG TABLET PO SCH (08:44)
[2019-03-12] MEDS: SODIUM CHLORIDE 0.9% 1,000 ML IV SCH ×2 (08:44→19:00)
[2019-03-12] MEDS: CHOLECALCIFEROL 5,000u TAB PO SCH (08:44)
[2019-03-12] MEDS: ACETAMINOPHEN 325 MG TABLET PO PRN ×2 (08:59→17:00)
[2019-03-12 12:05] LABS: TROPONIN I 0.668 ng/mL (0.000-0.045)
[2019-03-12] MEDS: HEPARIN 5,000 UNITS/ML, 1ML IV PRN (12:30)
[2019-03-12 12:33] VITALS: BP 122/75
[2019-03-12 18:27] VITALS: BP 133/71
[2019-03-12] MEDS: PRAVASTATIN SODIUM 40 MG TABLET PO SCH (20:31)
[2019-03-12] MEDS: OXYcodone IR 5MG TABLET PO PRN (20:32)
[2019-03-13 00:44] VITALS: BP 94/61
[2019-03-13 05:43] LABS: BASOPHILS # (AUTO) 0.02 x10^3/uL (0-0.1); BASOPHILS % (AUTO) 1 % (0-1); EOSINOPHILS # (AUTO) 0.18 x10^3/uL (0-0.4); EOSINOPHILS % (AUTO) 4 % (1-7); LYMPHOCYTES # (AUTO) 1.13 x10^3/uL (1-3.4); LYMPHOCYTES % (AUTO) 24 % (22-44); MD NO; MEAN CORPUSCULAR HEMOGLOBIN 34.1 pg (27.0-34.8); MEAN CORPUSCULAR HGB CONC 33.7 g/dL (32.4-35.8); MEAN CORPUSCULAR VOLUME 101.2 fL (80-100); MEAN PLATELET VOLUME 8.3 fL (7.4-10.4); MONOCYTES # (AUTO) 0.48 x10^3/uL (0.2-0.8); MONOCYTES % (AUTO) 10 % (2-9); NEUTROPHILS % (AUTO) 62 % (42-75); PLATELET COUNT 182 x10^3/uL (130-400); RED BLOOD COUNT 4.04 x10^6/uL (3.82-5.3); RED CELL DISTRIBUTION WIDTH 15.5 % (9.6-15.2)
[2019-03-13] MEDS: ASPIRIN 325 MG TABLET EC PO SCH (05:45)
[2019-03-13 05:47] LABS: CHLORIDE 104 mmol/L (98-107)
[2019-03-13 05:55] LABS: ALANINE AMINOTRANSFERASE 36 U/L (12-78); ALBUMIN 3.6 g/dL (3.4-5.0); ALKALINE PHOSPHATASE 98 U/L (45-117); ANION GAP 6 mmol/L (5-15); BILIRUBIN,TOTAL 0.8 mg/dL (0.2-1.0); CHOL/HDL RATIO 2.8; CHOLESTEROL, TOTAL 202 mg/dL (140-239); CREATININE 0.68 mg/dL (0.55-1.02); HDL CHOL % 36 % (28-40); HDL CHOLESTEROL (DIRECT) 72 mg/dL (40-60); LDL CHOLESTEROL,CALCULATED 96 mg/dL (54-169); LDL/HDL RATIO 1.3 (0.5-3.0); TOTAL PROTEIN 6.3 g/dL (6.4-8.2); TRIGLYCERIDES 171 mg/dL (50-200); VLDL CHOLESTEROL 34 mg/dL (0-25)
[2019-03-13] MEDS: HEPARIN 5,000 UNITS/ML, 1ML IV PRN ×2 (06:11→20:34)
[2019-03-13 07:19] VITALS: BP 128/78
[2019-03-13] MEDS: CALCIUM CARBONATE 500 MG TAB.CHEW PO SCH (07:50)
[2019-03-13] MEDS: FOLIC ACID 1 MG TABLET PO SCH ×2 (07:50→20:33)
[2019-03-13] MEDS: CHOLECALCIFEROL 5,000u TAB PO SCH (07:51)
[2019-03-13] MEDS: ACETAMINOPHEN 325 MG TABLET PO PRN (07:51)
[2019-03-13] MEDS: PREGABALIN 150 MG CAPSULE PO SCH ×2 (07:51→20:33)
[2019-03-13] MEDS: MELOXICAM 15 MG TABLET PO SCH (07:51)
[2019-03-13] MEDS: SERTRALINE 50MG TABLET PO SCH (07:51)
[2019-03-13] MEDS: HEPARIN 25,000 UNITS/500ML PMX 500 ML IV PRN (07:54)
[2019-03-13 14:00] VITALS: BP 120/82
[2019-03-13 18:57] VITALS: BP 135/81
[2019-03-13] MEDS: OXYcodone IR 5MG TABLET PO PRN (20:33)
[2019-03-13] MEDS: PRAVASTATIN SODIUM 40 MG TABLET PO SCH (21:30)
[2019-03-14 00:38] VITALS: BP 111/71
[2019-03-14 02:54] LABS: TROPONIN I 0.096 ng/mL (0.000-0.045)
[2019-03-14] MEDS: HEPARIN 25,000 UNITS/500ML PMX 500 ML IV PRN (06:39)
[2019-03-14] MEDS: ASPIRIN 325 MG TABLET EC PO SCH (06:39)
[2019-03-14 06:53] VITALS: BP 122/82
[2019-03-14] MEDS: SERTRALINE 50MG TABLET PO SCH (08:19)
[2019-03-14] MEDS: CALCIUM CARBONATE 500 MG TAB.CHEW PO SCH (08:22)
[2019-03-14] MEDS: FOLIC ACID 1 MG TABLET PO SCH (08:23)
[2019-03-14] MEDS: PREGABALIN 150 MG CAPSULE PO SCH (08:23)
[2019-03-14] MEDS: MELOXICAM 15 MG TABLET PO SCH (08:25)
[2019-03-14] MEDS: CHOLECALCIFEROL 5,000u TAB PO SCH (08:26)
[2019-03-14] MEDS: ACETAMINOPHEN 325 MG TABLET PO PRN (08:27)
[2019-03-14] MEDS ORDERED: REGADENOSON 0.4 MG/5 ML SYRINGE ONE (08:44)
[2019-03-14 13:52] VITALS: BP 105/67
[2019-03-14] MEDS ORDERED: ASPI-650 PO (14:43)
== END 2019-03-14 17:34 | disposition home or self-care (01) | DRG 280 ==
LOC: ED 02:54 → EDIP 04:45 → 5SO 05:38
PROVIDERS: ADMIT Internal Medicine; ATTEND Internal Medicine
DX: I21.A1 Myocardial infarction type 2 (principal); J96.01 Acute respiratory failure with hypoxia; G45.9 Transient cerebral ischemic attack, unspecified; R47.01 Aphasia; E78.5 Hyperlipidemia, unspecified; F32.9 Major depressive disorder, single episode, unspecified; G40.409 Other generalized epilepsy and epileptic syndromes, not intractable, without status epilepticus; I11.9 Hypertensive heart disease without heart failure; M06.9 Rheumatoid arthritis, unspecified; M19.90 Unspecified osteoarthritis, unspecified site; Z96.641 Presence of right artificial hip joint; J44.9 Chronic obstructive pulmonary disease, unspecified; M47.812 Spondylosis without myelopathy or radiculopathy, cervical region; M81.0 Age-related osteoporosis without current pathological fracture; Z86.73 Personal history of transient ischemic attack (TIA), and cerebral infarction without residual deficits; Z87.891 Personal history of nicotine dependence; Z88.2 Allergy status to sulfonamides
CPT/HCPCS: 36415; 70450; 70496; 70498; 70551; 71045; 78452; 80053; 80061; 81001; 82306; 82607; 82962; 83036; 83735; 84439; 84443; 84484; 85025; 85520; 85610; 85730; 87086; 93005; 93017; 96374; 96375; G0378; J1644; J2405; J2785; Q9967; 92523-GN; A9502; C9898; J7030; J7512

== ENCOUNTER 2019-09-27 15:31 | Emergency (ER) | payer MEDICARE ==
[~2019-09-27] VITALS: Ht 165.1 cm; Wt 65.0 kg
[~2019-09-27 15:31] MED LIST changes: +FLUT50BL PO; -HYDR-3307 PO; +HYDR-36 PO
--- NOTE | 2019-09-27 15:35 | NUR ---
BIB [facility] FROM HOME W/ CO NAUSEA X THREE WEEKS, WORSENING TODAY. PT REPORTS SYMPTOMS ONSET AFTER BEING TAKEN OFF LYRICA. WEANING MANAGED BY NEUROLOGIST, LAST DOSE 09/01. +ANXIETY/RESTLESSNESS. NAUSEA CONTINUES DESPITE TAKING 3 5MG ZOFRAN AT 1200. EKG TAKEN UPON ARRIVAL. NSR ON MONITOR. PT DENIES CP/SOB/ABD PAIN/VOMITING. BP/SPO2/ECG MONITORING IN PLACE. SO AT BEDSIDE.
[2019-09-27] MEDS ORDERED: PROMETHAZINE 25 MG/ML, 1ML ONE (15:51)
[2019-09-27] MEDS ORDERED: PROMETHAZINE 25 MG/ML, 1ML IM STA (15:56)
[2019-09-27] MEDS ORDERED: SODIUM CHLORIDE FLUSH 10ML SYR IVF ONE (16:00)
[2019-09-27] MEDS ORDERED: SODIUM CHLORIDE 0.9% 1,000ML IVBOLUS ONE (16:00)
--- NOTE | 2019-09-27 16:06 | NUR ---
IV ESTABLISHED, LABS DRAWN. IVF HUNG & PT MEDICATED PER ORDER
[2019-09-27 16:13] LABS: BASOPHILS # (AUTO) 0.03 x10^3/uL (0-0.1); BASOPHILS % (AUTO) 0 % (0-1); EOSINOPHILS # (AUTO) 0.13 x10^3/uL (0-0.4); EOSINOPHILS % (AUTO) 2 % (1-7); LYMPHOCYTES # (AUTO) 1.57 x10^3/uL (1-3.4); LYMPHOCYTES % (AUTO) 21 % (22-44); MD NO; MEAN CORPUSCULAR HEMOGLOBIN 32.1 pg (27.0-34.8); MEAN CORPUSCULAR HGB CONC 33.4 g/dL (32.4-35.8); MEAN CORPUSCULAR VOLUME 96.1 fL (80-100); MEAN PLATELET VOLUME 7.6 fL (7.4-10.4); MONOCYTES # (AUTO) 0.79 x10^3/uL (0.2-0.8); MONOCYTES % (AUTO) 10 % (2-9); NEUTROPHILS # (AUTO) 5.12 x10^3/uL (1.8-6.8); NEUTROPHILS % (AUTO) 67 % (42-75); PLATELET COUNT 267 x10^3/uL (130-400); RED BLOOD COUNT 4.96 x10^6/uL (3.82-5.3)
[2019-09-27 16:21] LABS: ALANINE AMINOTRANSFERASE 35 U/L (12-78); ALBUMIN 3.8 g/dL (3.4-5.0); ANION GAP 11 mmol/L (5-15); CALCIUM 9.8 mg/dL (8.5-10.1); CHLORIDE 102 mmol/L (98-107)
[2019-09-27 16:24] LABS: ALKALINE PHOSPHATASE 81 U/L (45-117); BILIRUBIN,TOTAL 0.6 mg/dL (0.2-1.0); TOTAL PROTEIN 6.9 g/dL (6.4-8.2)
--- NOTE | 2019-09-27 16:43 | NUR ---
PT RESTING IN GURNEY. SIGNIFICANT IMPROVEMENT IN RESTLESSNESS. SPO2 85% ON RA. SO STATES THAT PT WEARS 2L BY NC AT BASELINE BUT DIDN'T COME IN WITH IT BECAUSE "RESMA DIDN'T GRAB IT". PT PLACED ON 2L BY NC. SPO2 TO >90%. PT STATES THAT NAUSEA IS STILL PRESENT BUT HAS IMPROVED.
[2019-09-27 16:45] VITALS: BP 139/60
[2019-09-27 16:49] LABS: TROPONIN I < 0.015 ng/mL (0.000-0.045)
--- NOTE | 2019-09-27 17:31 | NUR ---
DC EDUCATION PROVIDED, PT DEMONSTRATES UNDERSTANDING. PT TRANSFERED SELF TO WHEELCHAIR AT BEDSIDE. WHEELED TO DC WITH RN AND SO ON O2. SO TO TRANSPORT PT HOME. SO STATES "HER OXYGEN IS INTERMITTENT, SHE'LL BE OKAY FOR THE RIDE HOME WITHOUT IT"
== END 2019-09-27 17:34 | disposition home or self-care (01) ==
LOC: ED 16:46
DX: R11.0 Nausea (principal); R06.02 Shortness of breath; I10 Essential (primary) hypertension; E78.5 Hyperlipidemia, unspecified; J44.9 Chronic obstructive pulmonary disease, unspecified; Z86.73 Personal history of transient ischemic attack (TIA), and cerebral infarction without residual deficits
CPT/HCPCS: 36415; 80053; 83690; 84484; 85025; 93005; 96372; 99284; J2550; J7030; 96361

== ENCOUNTER 2020-07-22 07:31 | Outpatient (CLI) | payer MEDICARE ==
[~2020-07-22 07:31] MED LIST changes: -CALC600T4 PO; +CALC600T60 PO; +HYDR-3246 PO; -HYDR-36 PO
== END 2020-07-22 23:59 | disposition home or self-care (01) ==
LOC: CVU 07:31
PROVIDERS: ATTEND Internal Medicine
DX: I08.8 Other rheumatic multiple valve diseases (principal); I65.23 Occlusion and stenosis of bilateral carotid arteries; I10 Essential (primary) hypertension; R94.31 Abnormal electrocardiogram [ECG] [EKG]; R00.2 Palpitations; R53.83 Other fatigue; M06.9 Rheumatoid arthritis, unspecified; R20.0 Anesthesia of skin; R42 Dizziness and giddiness; R06.02 Shortness of breath
CPT/HCPCS: 93306; 93880; 95886; 95909

== ENCOUNTER → 2020-11-04 | Outpatient (CLI) | payer MEDICARE ==
[~2020-11-04] MED LIST changes: +ASPI-1026 PO; -ASPI-650 PO; +ASPI325T20 PO; -CLIN150C14 PO; +CLIN150C15 PO; -FOLI0.8T2 PO; +FOLI0.8T5 PO; -HYDR-3246 PO; +HYDR-3248 PO; +OMNIPAQUE 350 MG/ML, 100ML BOTTLE ONE
== END | disposition home or self-care (01) ==
LOC: RAD 14:02
PROVIDERS: ATTEND Physician Assistant Medical
DX: J92.9 Pleural plaque without asbestos (principal); J43.9 Emphysema, unspecified; R91.1 Solitary pulmonary nodule; J98.4 Other disorders of lung; R06.02 Shortness of breath; R00.0 Tachycardia, unspecified; J98.11 Atelectasis; I70.0 Atherosclerosis of aorta
CPT/HCPCS: 71275; Q9967

== ENCOUNTER → 2020-11-07 | Outpatient (CLI) | payer MEDICARE ==
[~2020-11-07] MED LIST changes: -OMNIPAQUE 350 MG/ML, 100ML BOTTLE ONE
== END | disposition home or self-care (01) ==
LOC: CFH 09:21
PROVIDERS: ATTEND Family Medicine Geriatric Medicine
DX: M81.0 Age-related osteoporosis without current pathological fracture (principal); M85.9 Disorder of bone density and structure, unspecified; Z78.0 Asymptomatic menopausal state; Z00.00 Encounter for general adult medical examination without abnormal findings
CPT/HCPCS: 77080

== ENCOUNTER 2021-05-17 12:19 | Outpatient (CLI) | payer MEDICARE ==
[~2021-05-17 12:19] MED LIST changes: -CLIN150C15 PO; +CLIN150C17 PO
[2021-05-17 12:49] LABS: ALANINE AMINOTRANSFERASE 42 U/L (12-78); ALBUMIN 3.7 g/dL (3.4-5.0); ANION GAP 8 mmol/L (5-15); CALCIUM 8.7 mg/dL (8.5-10.1); CHLORIDE 100 mmol/L (98-107); CREATININE 0.91 mg/dL (0.55-1.02)
[2021-05-17 12:53] LABS: BASOPHILS % (AUTO) 1 % (0-1); EOSINOPHILS % (AUTO) 0 % (1-7); LYMPHOCYTES % (AUTO) 10 % (22-44); MEAN CORPUSCULAR HEMOGLOBIN 34.4 pg (27.0-34.8); MEAN CORPUSCULAR HGB CONC 33.9 g/dL (32.4-35.8); MEAN PLATELET VOLUME 6.7 fL (7.4-10.4); MONOCYTES % (AUTO) 7 % (2-9); NEUTROPHILS % (AUTO) 82 % (42-75); PLATELET COUNT 193 x10^3/uL (130-400); RED BLOOD COUNT 3.69 x10^6/uL (3.82-5.3); RED CELL DISTRIBUTION WIDTH 13.9 % (9.6-15.2)
[2021-05-17 12:57] LABS: ALKALINE PHOSPHATASE 82 U/L (45-117); BILIRUBIN,TOTAL 0.8 mg/dL (0.2-1.0); TOTAL PROTEIN 6.7 g/dL (6.4-8.2)
[2021-05-17 13:56] LABS: HCT (SEDRATE) 37.5 % (34.6-47.8)
== END 2021-05-17 23:59 | disposition home or self-care (01) ==
LOC: LAB 12:19
PROVIDERS: ATTEND Internal Medicine Rheumatology
DX: M06.9 Rheumatoid arthritis, unspecified (principal); Z79.899 Other long term (current) drug therapy
CPT/HCPCS: 36415; 80053; 85025; 85651; 86140

== ENCOUNTER 2021-05-25 18:30 | Emergency (ER) | payer MEDICARE ==
[~2021-05-25] VITALS: Ht 165.1 cm; Wt 60.0 kg
--- NOTE | 2021-05-25 18:57 | NUR ---
EKG IN TRIAGE
[2021-05-25 19:33] LABS: BASOPHILS % (AUTO) 0 % (0-1); EOSINOPHILS % (AUTO) 1 % (1-7); LYMPHOCYTES % (AUTO) 8 % (22-44); MEAN CORPUSCULAR HEMOGLOBIN 34.6 pg (27.0-34.8); MEAN CORPUSCULAR HGB CONC 33.9 g/dL (32.4-35.8); MEAN PLATELET VOLUME 6.7 fL (7.4-10.4); MONOCYTES % (AUTO) 8 % (2-9); NEUTROPHILS % (AUTO) 84 % (42-75); PLATELET COUNT 221 x10^3/uL (130-400); RED BLOOD COUNT 3.98 x10^6/uL (3.82-5.3); RED CELL DISTRIBUTION WIDTH 13.6 % (9.6-15.2)
[2021-05-25 19:47] LABS: ALBUMIN 4.3 g/dL (3.4-5.0); ANION GAP 12 mmol/L (5-15); CALCIUM 9.1 mg/dL (8.5-10.1); CHLORIDE 98 mmol/L (98-107)
[2021-05-25 19:50] LABS: ALANINE AMINOTRANSFERASE 48 U/L (12-78); ALKALINE PHOSPHATASE 89 U/L (45-117); CREATININE 0.64 mg/dL (0.55-1.02); TOTAL PROTEIN 7.6 g/dL (6.4-8.2)
[2021-05-25] MEDS ORDERED: HYDROmorphone 1 MG/ML, 1ML INJ IM ONE (22:30)
[2021-05-25] MEDS ORDERED: HYDROmorphone 2 MG/ML, 1ML ONE (22:35)
[2021-05-25 22:42] VITALS: BP 176/87
--- NOTE | 2021-05-25 22:52 | NUR ---
Patient given discharge instructions and they have confirmed that they understand the instructions. Patient ambulatory with steady gait. NAD, all questions answered appropriately, denies additional needs at this time. No personal belongings left in room after discharge.
== END 2021-05-25 22:54 | disposition home or self-care (01) ==
LOC: ED 21:56
DX: G40.909 Epilepsy, unspecified, not intractable, without status epilepticus (principal); K14.6 Glossodynia; R94.31 Abnormal electrocardiogram [ECG] [EKG]; I10 Essential (primary) hypertension; E78.5 Hyperlipidemia, unspecified; J44.9 Chronic obstructive pulmonary disease, unspecified; Z86.73 Personal history of transient ischemic attack (TIA), and cerebral infarction without residual deficits; Z87.891 Personal history of nicotine dependence
CPT/HCPCS: 36415; 80053; 85025; 93005; 96372; 99284; J1170